=== PATIENT | female | born 1970 | race Two or more races ===

== ENCOUNTER 2023-01-29 18:46 | Emergency (ER) | payer OTHER ==
[~2023-01-29] VITALS: Ht 149.9 cm; Wt 75.0 kg
[~2023-01-29 18:46] MED LIST: IBUP-2030 PO; NAPR-681 PO; OMEP20TA23 PO
[2023-01-29 19:13] VITALS: O2SAT 100
[2023-01-29 19:38] LABS: BASOPHILS % 0.5 % (0.0-2.0); EOSINOPHILS % 2.5 % (0.0-5.0); HEMATOCRIT. 39.7 % (36.0-48.0); LYMPHOCYTES % 32.6 % (20.0-50.0); MEAN CORPUSCULAR HEMOGLOBIN 26.6 pg (28.0-32.0); MEAN CORPUSCULAR HGB CONC 32.6 g/dL (31.0-37.0); MEAN CORPUSCULAR VOLUME 81.5 fL (81.0-99.0); MEAN PLATELET VOLUME 8.6 fl (7.4-10.4); MONOCYTES % 8.2 % (2.0-8.0); NEUTROPHILS % 56.2 % (40.0-76.0); PLATELET 235 x1000/uL (130-400); RED BLOOD CELL COUNT 4.88 mill/uL (4.2-5.4); RED CELL DISTRIBUTION WIDTH 24.5 % (11.6-14.6); WHITE BLOOD COUNT 6.3 x1000/uL (4.5-11.0)
[2023-01-29 19:58] LABS: DIFFERENTIAL COMMENT 1
[2023-01-29 19:59] LABS: ADD RBC MORPHOLOGY YES
[2023-01-29 20:03] LABS: ALANINE AMINOTRANSFERASE 23 IU/L (10-49); ALBUMIN 4.3 g/dL (3.2-4.8); ASPARTATE AMINOTRANSFERASE 19 IU/L (<34); BILIRUBIN TOTAL 0.6 mg/dL (0.1-1.0); CALCIUM 9.2 mg/dL (8.7-10.4); CARBON DIOXIDE 28 mEq/L (21-32); CHLORIDE 106 mEq/L (98-107); CREATININE 0.7 mg/dL (0.6-1.0); GLUCOSE 91 mg/dL (70-105); POTASSIUM 3.9 mEq/L (3.5-5.1); SODIUM 141 mEq/L (136-145); UREA NITROGEN BLOOD 9 mg/dL (9-23)
[2023-01-29 20:07] LABS: CLARITY URINE CLEAR (CLEAR); COLOR URINE YELLOW (YELLOW); GLUCOSE URINE NEGATIVE (NEGATIVE); KETONES URINE NEGATIVE (NEGATIVE); LEUKOCYTE ESTERASE URINE NEGATIVE (NEGATIVE); NITRITE URINE NEGATIVE (NEGATIVE); OCCULT BLOOD URINE NEGATIVE (NEGATIVE); PROTEIN URINE NEGATIVE (NEGATIVE); UROBILINOGEN URINE 0.2 E.U./dL (0.2-1.0)
[2023-01-29 21:19] LABS: PLATELET ESTIMATE NORMAL
[2023-01-29 21:20] LABS: ANISOCYTOSIS 2+
[2023-01-29 21:21] LABS: GIANT PLATELETS FEW
[2023-01-29 21:55] LABS: HCG SCREEN NEGATIVE
[2023-01-29] MEDS ORDERED: DOCU-138 MT (23:42)
[2023-01-29] MEDS ORDERED: POLY17PO3 MT (23:42)
[2023-01-30 00:18] VITALS: BP 133/81; PULSE 66; RESP 18; TEMP 98
== END 2023-01-30 00:18 | disposition home or self-care (01) ==
LOC: ER 18:46
DX: K59.00 Constipation, unspecified (principal); Z98.890 Other specified postprocedural states
CPT/HCPCS: 36415; 74176; 80053; 81003; 84703; 85025; 99284